=== PATIENT | female | born 1960 | race Caucasian/White ===

== ENCOUNTER 2019-07-30 11:49 | Inpatient (IN) | payer OTHER ==
[~2019-07-30] VITALS: Ht 160 cm; Wt 34.0 kg
--- NOTE | ~2019-07-30 | O ---
[facility] [place] [address] OPERATIVE REPORT Name: ALEJANDRA JETT Room #: [facility] IN M.R.#: [id number] Admission: 07/30/19 Attend Phys: Fernando Meraz MD Discharge: Date of : 56 Report #: [id number] THIS REPORT FOR: cc: Shawanda Rowan MD,Shawanda Rendon,Shan Enriquez MD ~ CC: Fernando Rowan DATE OF SERVICE: 08/01/2019 PREOPERATIVE DIAGNOSIS: Right hip femoral neck fracture. POSTOPERATIVE DIAGNOSIS: Right hip femoral neck fracture. PROCEDURE: Right hip hemiarthroplasty. SURGEON: Shan Rendon MD PREVENTATIVE MAINTENANCE TECHNICIAN: Lisandra Fierro. ANESTHESIA: General. ESTIMATED BLOOD LOSS: Minimal. DRAINS: No drains. TOURNIQUET TIME: Zero. ESTIMATED BLOOD LOSS: 200 mL. COMPLICATIONS: There were no complications. DESCRIPTION OF PROCEDURE: The patient was brought to the operating room where she was placed under general anesthesia. Once under adequate general anesthesia, she was placed into a lateral decubitus position on the operative table. The patient's right hip was then prepped and draped in sterile manner. A 14 cm incision was made overlying the tip of the greater trochanter. This was dissected down through soft tissue to the tensor fascia, which was incised in line with the incision exposing the posterior aspect of the hip. A posterior approach to the hip was then made, elevating the piriformis along with the joint capsule. Any hematoma was evacuated from the joint and a Casanova elevator was used to remove the femoral head. This was sized as 41 mm head. The femoral neck was cut to length with an oscillating saw and subsequently the head was trialled and 41 did appear to be the appropriate size of femoral head. Therefore, the [facility] [address] [place] [address] OPERATIVE REPORT Name: ALEJANDRA JETT Room #: 435-P [facility] IN ..#: [id number] Admission: 07/30/19 Attend Phys: Fernando Meraz MD Discharge: Date of : 56 Report #: [id number] femoral canal was then prepared. It was reamed and broached to a size 7 femoral stem. Subsequent to this, the femoral canal was prepared and cement stopper was placed. The cement was then mixed on the back table and subsequently the size 7 stem was placed along with the cement. This was fixed into place allowing the cement to set and subsequently the +5 bipolar neck and 41 head was then placed. This was then subsequently reduced. Excellent reduction with excellent stability was achieved in this manner. The wound was irrigated copiously and closed with #2 FiberWire in the capsular layer and #5 FiberWire to repair the piriformis back to its place in its fossa. The wound was irrigated once again copiously and closed with #1 Vicryl in the tensor fascia, 2-0 Vicryl in subcutaneous tissues and annalisa were used for the skin. Wounds were dressed with Xeroform, 4 x 4s, and sterile soft compressive dressing was placed. There were no tourniquets. There were no complications. The patient went to the recovery room without incident. By: [id number] Shan Rendon MD /nt
[~2019-07-30 11:49] MED LIST: CELEBREX 200 M200 M1 PO; DESYREL50 MG PO; FOSAMAX 70 MG T70 M1; LISINOPRIL20 MG; MIRAPEX0.25 MG; NABUMETONE 750750 M1 PO; NOHOMEMEDICATIONS; NORCO 5-325 TA1 EACH PO; PREDNISONE 10 M10 M1 PO; PROTONIX40 MG PO; QUETIAPINE FUM300 MG; SULFASALAZINE500 M4 PO
[2019-07-30 11:55] VITALS: BP 160/93
[2019-07-30 12:41] LABS: URINE BLOOD 2+ (Negative); URINE CLARITY CLEAR; URINE COLOR YELLOW; URINE GLUCOSE-RANDOM* NEGATIVE (Negative); URINE KETONES 1+ (Negative); URINE NITRITE-REFLEX NEGATIVE (Negative); URINE PROTEIN (DIPSTICK) NEGATIVE (Negative)
[2019-07-30 12:46] LABS: URINE LEUKOCYTES-REFLEX 1+ (Negative)
[2019-07-30 12:47] LABS: ICTOTEST (BILI CONFIRMATORY) Negative (Negative); URINE BILIRUBIN NEGATIVE (Negative)
[2019-07-30 12:54] LABS: CASTS None Seen /LPF (None Seen); MUCUS 0-3 Light strn/LPF (None Seen); SQUAMOUS >10 Many /LPF (0-3)
[2019-07-30 12:55] LABS: CRYSTALS None Seen /LPF (None Seen); URINE RBC 0-2 Rare /HPF (0-2); URINE WBC-REFLEX 0-5 Rare /HPF (0-5)
[2019-07-30 13:03] LABS: ABSOLUTE NEUTROPHILS 6.4 thou/uL (1.4-8.2); BASOPHILS 1.4 % (0.0-2.0); EOSINOPHILS 0.1 % (0.0-3.0); HEMATOCRIT 41.6 % (37.0-47.0); HEMOGLOBIN 13.7 gm/dL (12.0-15.0); LYMPHOCYTES 8.9 % (24.0-44.0); MCH 33.1 pg (26.0-34.0); MCHC 32.9 g/dL (28.0-37.0); MCV 100.6 fL (80.0-100.0); MONOCYTES 6.2 % (1.0-8.0); PLATELET COUNT 277 thou/uL (150-400); POLYS 83.4 % (36.0-66.0); RBC 4.14 mil/uL (4.20-5.00); RDW 15.5 % (10.5-14.5); WBC 7.7 thou/uL (4.0-11.0)
[2019-07-30 13:22] LABS: ANION GAP 11 mmol/L (7-16); BUN 5 mg/dL (7-18); CALCIUM 8.9 mg/dL (8.5-10.1); CHLORIDE 96 mmol/L (98-107); CO2 23 mmol/L (21-32); CREATININE 0.5 mg/dL (0.6-1.0); GLUCOSE 120 mg/dL (74-106); POTASSIUM 3.7 mmol/L (3.5-5.1); SODIUM 130 mmol/L (136-145)
[2019-07-30 13:30] LABS: ALBUMIN 2.9 g/dL (3.4-5.0); SGOT 24 U/L (15-37); SGPT 18 U/L (30-65); TOTAL BILIRUBIN 0.9 mg/dL (<0.1-1.0); TOTAL PROTEIN 6.8 g/dL (6.4-8.2); TROPONIN-I <0.06 ng/mL (<0.06)
[2019-07-30] MEDS ORDERED: VITAMIN B-1100 M2 PO (13:51)
[2019-07-30] MEDS ORDERED: MOBIC7.5 MG PO (13:51)
[2019-07-30] MEDS ORDERED: FOLIC ACID1 MG PO (13:51)
[2019-07-30] MEDS ORDERED: TRAZODONE HCL50 MG PO (13:51)
[2019-07-30] MEDS ORDERED: MULTI COMPLETE1 EAC1 PO (13:52)
[2019-07-30] MEDS ORDERED: METHOCARBAMOL500 M2 PO (13:52)
[2019-07-30] MEDS ORDERED: TYLENOL325 MG PO (13:53)
[2019-07-30 14:19] VITALS: BP 166/88
[2019-07-30 14:34] LABS: MAGNESIUM 1.7 mg/dL (1.8-2.4)
[2019-07-30 15:44] VITALS: BP 154/88
[2019-07-30 17:47] VITALS: BP 130/59
[2019-07-30 19:03] VITALS: BP 165/83
--- NOTE | 2019-07-30 19:29 | NUR ---
VSS-AFEBRILE. LUNGS CLEAR-ROOM AIR. DAUGHTER STATES THAT PATIENT IS A DAILY DRINKER (6 BEERS), AND SHE IS WORRIED ABOUT WITHDRAWL. NO SIGNS OF WITHDRAWL AT THIS TIME. PAIN WELL CONTROLLED WITH IV AND PO PAIN MEDICATION. LOGAN DRAINING ADEQUATE AMOUNTS OF DARK YELLOW URINE TO DEPENDENT DRAINAGE BAG. CONSUMED 50% OF DINNER, WILL BE NPO AFTER MIDNIGHT FOR ANTICIPATED SURGERY. FALL PRECAUTIONS IN PLACE, ALL CONSENTS SIGNED, CALLS APPROPRIATELY FOR ANY NEEDED ASSISTANCE.
--- NOTE | 2019-07-31 03:07 | NUR ---
ASSUMED PT CARE AT 1900. PT SLEEPING NEARLY ALL NIGHT. DENIES PAIN WHEN ASKED. NPO AT MIDNIGHT, AWAITING VISIT FROM SURGEON TOMORROW. FLUIDS INFUSING PER ORDER. LOGAN PATENT WITH GOOD OUTPUT. SOME CONFUSION ABOUT TIME OF DAY/WHAT CERTAIN NOISES ARE. WILL CONTINUE TO MONITOR.
[2019-07-31 04:21] VITALS: BP 155/79
[2019-07-31 06:33] LABS: AMP/METHAMP Negative (Negative); BARBITURATES Negative (Negative); BENZODIAZEPINES Negative (Negative); COCAINE Negative (Negative); METHADONE Negative (Negative); OPIATES POSITIVE (Negative); PCP Negative (Negative)
[2019-07-31 07:27] VITALS: BP 142/74
--- NOTE | 2019-07-31 08:40 | EKG ---
[facility] [place] [address] ELECTROCARDIOGRAM REPORT Name: ALEJANDRA JETT Room #: [facility]- ADM IN M.R.#: [id number] Admission: 07/30/19 Attend Phys: Fernando Meraz MD Discharge: Date of : 56 Report #: [id number] THIS REPORT FOR: cc: Shawanda Rowan MD, Molly MD Lundgren,Koko Tineo MD [facility] ~ THIS REPORT FOR: //name// [facility] ED Test Date: 2019-07-30 Test Time: 13:12:24 Pat Name: ALEJANDRA JETT Department: Room: [facility] Gender: F Exchange Specialist: : [id number] Requested By: Rory Diaz Order Number: [id number] MD: Koko Sanchez Measurements Intervals [place] Rate: 73 P: 85 AR: 167 QRS: 83 QRSD: 94 T: 73 QT: 438 QTc: 483 Interpretive Statements Sinus rhythm Possible Anteroseptal infarct, age indeterminate Compared to ECG 02/18/2013 08:25:29 Septal Q waves are now present Electronically Signed On 07-31-2019 8:39:49 EMPLOYMENT TRAINING SPECIALIST by Koko Sanchez [email or web address] <ELECTRONICALLY SIGNED> By: Koko Sanchez MD, [facility] 07/31/19 0839 [id number] Koko Sanchez MD, [facility] /EPI
--- NOTE | 2019-07-31 10:08 | NUR ---
ASSESSMENT-PT LIVES AT HOME ALONE. SHE HAS A RAMP TO ENTER THEN A STAIRGLIDE TO BATHROOM BEDROOM LEVEL AND A STAIRGIDE TO BASEMENT LEVEL WHERE LAUNDRY IS LOCATED. PT USES A ROLLER WALKER IN THE HOME AND A WC OUSIDE OF THE HOME. PT SAYS SHE HAD HH SERVICES LAST YEAR BUT CANNOT REMEMBER THE NAME OF THE AGENCY. PT DOES NOT DRIVE, HER DTR OTONIEL ARELLANO TRANPORTS HER OR SHE USES TRANSPORTATION THRU HER INS. DTR ADAN DOES THE LAUNDRY AND HELPS HER WITH THE CLEANING. 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 DTR IAN DOES NOT HAVE A CAR AND WORKS LONG HOURS. PT HAS ANOTHER DTR RICHY WHO LIVES IN [place] BUT DOES NOT HELP OUT SINCE SHE LIVES AWAY FROM HER. PT HAS A SHOWER CHAIR SHE SITS ON BUT NO BARS GETTING IN AND OUT OF THE SHOWER. DISCUSSED POSSIBLE NEED FOR REHAB VS HH SERVICES. PT PREFERS HH SERVICES IF POSSIBLE. FOLLOWING TO ASSIST WITH DC PLANNING.
--- NOTE | 2019-07-31 15:00 | NUR ---
Assumed care of pt at 0700. Pt alert but with periods of confusion. Pain controlled with prn pain meds. Pt will have surgery tomorrow. Family aware. Newman catheter in place. Will contact doctor and inquire about dicontinuing catheter. IVF infusing. Pt will be NPO after midnight. Fall precautions in place. Will continue to monitor.
[2019-07-31 15:25] VITALS: BP 134/70
[2019-07-31 19:17] VITALS: BP 125/68
[2019-08-01] VITALS (11 sets, daily range): BP systolic 82–150; BP diastolic 60–83
--- NOTE | 2019-08-01 03:39 | NUR ---
ASSESSMENT COMPLETED. PT IS ALERT AND ORIENTYED. VERY FRAIL LOOKING. IV FLUIDS INFUSING.NPO AFTER MIDNOC. PLAN FOR R HIP ROBERT IN THE MORNING. PREOP ABT GIVEN. AFEBRILE. SCDS IN PLACE.IN PAIN DURING REPOSITIONING BUT OTHERWISE DOING OKAY AT REST.ON IV FLUIDS. DOREEN ALVARES.
[2019-08-01 05:39] LABS: CALCIUM 7.2 mg/dL (8.5-10.1); CREATININE 0.6 mg/dL (0.6-1.0)
[2019-08-01 06:06] LABS: POTASSIUM 2.6 mmol/L (3.5-5.1)
[2019-08-01 06:13] LABS: HEMATOCRIT 34.4 % (37.0-47.0); MCH 33.9 pg (26.0-34.0); MCHC 32.9 g/dL (28.0-37.0); RBC 3.34 mil/uL (4.20-5.00); RDW 15.8 % (10.5-14.5); WBC 5.3 thou/uL (4.0-11.0)
[2019-08-01 06:15] LABS: HEMOGLOBIN 11.3 gm/dL (12.0-15.0)
--- NOTE | 2019-08-01 11:57 | NUR ---
Assumed care of pt at 0700. Newman catheter removed overnight. Pt has frequency. Potassium critically low this am. Replaced. Surgery scheduled for 1230. Family notified. Prn pain meds administered. IVF infusing. Call light within reach. Fall precautions in place.
--- NOTE | 2019-08-01 14:58 | NUR ---
I have reviewed and concur with student documentation.
--- NOTE | 2019-08-01 16:32 | NUR ---
PT TO HAVE SURGERY THIS DAY. FACESHEET PROVIDED TO [facility] TO SEE PT REGARDING SECONDARY MEDICAID APPLICATION. CM TO FOLLOW INDICATED WITH DC PLANNING.
[2019-08-01 17:48] LABS: BE(vivo) -2.6 mmol/L (-2 to +3); HCO3 22.5 mmol/L (22.0-26.0); PCO2 39.9 mmHg (35.0-45.0); PO2 161.8 mmHg (80.0-100.0); pH 7.369 (7.360-7.450)
[2019-08-01 18:08] LABS: HEMOGLOBIN 10.7 gm/dL (12.0-15.0); MCH 34.4 pg (26.0-34.0); MCHC 33.4 g/dL (28.0-37.0); MCV 102.9 fL (80.0-100.0); RBC 3.11 mil/uL (4.20-5.00); WBC 5.2 thou/uL (4.0-11.0)
--- NOTE | 2019-08-02 03:37 | NUR ---
PT WAS STILL DROWSY BUT EASILY AROUSABLE AT THE START OF SHIFT.VSS AT THE TIME.PT WAS PUT ON CONT PULASE OX FOR MONITORING.PT ON 2L/NC FOR COMFORT.DRSG ON HER R HIP C/D/I WITH ABDUCTOR PILLOW AND SCD IN PLACE.PT CONT ON IVF ORDERED.PT RESTING ON HER BED AT THIS TIME.FALL PRECAUTIONS IN PLACE,CALL LIGHT WITHIN REACH.
[2019-08-02 04:14] VITALS: BP 98/64
[2019-08-02 04:48] LABS: HEMATOCRIT 29.6 % (37.0-47.0); HEMOGLOBIN 9.7 gm/dL (12.0-15.0); MCH 34.2 pg (26.0-34.0); MCHC 32.9 g/dL (28.0-37.0); MCV 103.9 fL (80.0-100.0); RBC 2.84 mil/uL (4.20-5.00); RDW 15.6 % (10.5-14.5); WBC 6.2 thou/uL (4.0-11.0)
[2019-08-02 08:14] VITALS: BP 92/64
[2019-08-02 09:32] LABS: CALCIUM 7.4 mg/dL (8.5-10.1); CREATININE 0.5 mg/dL (0.6-1.0); PHOSPHORUS 3.6 mg/dL (2.5-4.9)
--- NOTE | 2019-08-02 10:56 | NUR ---
PT UP IN BEDSIDE CHAIR DRESSING INTACT TO RIGHT HIP. PT GIVEN PRN PAIN MED. PT ALERT XS 4 PLEASANT AND COOPERATIVE WITH CARE. PT WORKING WITH THERAPY.
--- NOTE | 2019-08-02 11:39 | NUR ---
[place] [facility] [place] JAVIER IN [place] SHE RECEIVED REFERRAL AND CAN ACCEPT WILL SUBMIT FOR AUTH. DP TO FOLLOW.
--- NOTE | 2019-08-02 13:47 | NUR ---
CARE TEAM INDICATED PT WOULD NEED POST ACUTE CARE STAY UPON DC. CM SPOKE WITH PT'S DTR/OTONIEL DEL CASTILLO AND SHE INDICATED THAT PT HAD BEEN TO [facility] [place] IN PAST AND WOULD LIKE REFERRAL SENT THERE FOR REVIEW FOR POSSIBLE ADMISSION. PT IS ALSO AWARE AND AGREEABLE. [facility] [place] INDICATED THEY CAN ACCEPT AND HAVE SUBMITTED FOR INSURANCE AUTH. CM TO FOLLOW INDICATED WITH DC PLANNING.
[2019-08-02 15:39] VITALS: BP 97/59
[2019-08-02 19:15] VITALS: BP 116/73
[2019-08-03 04:30] VITALS: BP 123/79
--- NOTE | 2019-08-03 04:34 | NUR ---
ALERT AND ORIENTED. PT USES BED MOTT BUT SOMETIMES IS INCONTINENT. R HIP POST OP DRSG INTACT. NO EDEMA. GOOD FLUID INTAKE. PT BEEN CALM AND COOPERATIVE THE WHOLE SHIFT.
[2019-08-03 06:03] LABS: HEMATOCRIT 25.3 % (37.0-47.0); HEMOGLOBIN 8.5 gm/dL (12.0-15.0); MCH 34.8 pg (26.0-34.0); MCHC 33.4 g/dL (28.0-37.0); MCV 104.2 fL (80.0-100.0); RBC 2.43 mil/uL (4.20-5.00); RDW 15.7 % (10.5-14.5); WBC 4.5 thou/uL (4.0-11.0)
[2019-08-03 07:22] VITALS: BP 129/70
[2019-08-03 15:55] VITALS: BP 137/78
[2019-08-03 19:10] VITALS: BP 106/76
--- NOTE | 2019-08-03 19:59 | NUR ---
Assumed care of pt at 0700. Dressing on right hip changed. Pt able to stand up and go to bedside commode, SBA with gait-belt and walker. Pain controlled with prn pain meds. Call light within reach. Fall precautions in place.
[2019-08-04 03:30] VITALS: BP 105/71
--- NOTE | 2019-08-04 04:03 | NUR ---
DRSG TO R HIP IS C/D/I. PT GETS UP SLOWWLY TO THE BSC. PT ALSO USES BED MOTT AND SOMETIMES GETS INCONTIENT DUE TO URGENCY.PT HAD A MOMENT OF CONFUSION RIGHT ABOUT BEDTIME,SHE TALKED TO THE DTR ON THE PHONE AND SHE BECAME BETTER. PT GIVEN PO HYDROCODONE AT HS AND PT WAS ABLE TO QUIETLY SLEEP.PLAN TO D/C TO SNF TODAY.
[2019-08-04 06:12] LABS: HEMOGLOBIN 8.7 gm/dL (12.0-15.0); MCH 34.8 pg (26.0-34.0); MCHC 33.6 g/dL (28.0-37.0); MCV 103.6 fL (80.0-100.0); RBC 2.51 mil/uL (4.20-5.00); RDW 15.7 % (10.5-14.5); WBC 4.7 thou/uL (4.0-11.0)
[2019-08-04 06:27] LABS: CALCIUM 8.4 mg/dL (8.5-10.1); CREATININE 0.6 mg/dL (0.6-1.0); MAGNESIUM 1.3 mg/dL (1.8-2.4); POTASSIUM 3.2 mmol/L (3.5-5.1)
[2019-08-04 07:28] VITALS: BP 112/76
--- NOTE | 2019-08-04 11:09 | NUR ---
PT RESTING IN BED NO CONFUSION AT THIS TIME PATIENT STATES HAD CONFUSION YERSTERDAY. PT TOOK AM MEDS. GAVE PRN PAIN MED.
[2019-08-04] MEDS ORDERED: VITAMIN D325 MCG PO (13:32)
[2019-08-04] MEDS ORDERED: MAG-OXIDE400 MG PO (13:32)
[2019-08-04] MEDS ORDERED: NICOTINE1 EAC2 TRANSDERM (13:32)
[2019-08-04] MEDS ORDERED: KLOR-CON 1010 MEQ PO (13:32)
[2019-08-04] MEDS ORDERED: XARELTO10 MG PO (13:32)
[2019-08-04] MEDS ORDERED: COLACE100 MG PO (13:32)
[2019-08-04] MEDS ORDERED: HYDROCODON-ACE1 EAC7 PO (13:32)
[2019-08-04] MEDS ORDERED: B-12500 MCG PO (13:32)
[2019-08-04] MEDS ORDERED: SLOW FE142 MG PO (13:32)
--- NOTE | 2019-08-04 14:49 | NUR ---
CARE TEAM INDICATED THAT [place] MEDICALLY ST[place] [facility] [place]ART COPY MADE. ORDERS TO BE FAXED. REPORT TO BE CALLED TO . [facility]ELCHA[facility] TRANSPORT SET UP FOR 1500. PT AND DTR/DPOA ARE AWARE AND AGREEABLE. NO OTHER CM INTERVENTION INDICATED. CASE CLOSED.
--- NOTE | 2019-08-04 16:36 | NUR ---
[facility] HERE TO TRANSPORT PATIENT TO [facility]. IV ACSZACK DC'D. ALL BELONGINGS PACKED AND SENT WITH PATIENT. DISCHARGE PAPERS SENT WITH PATIENT.
== END 2019-08-04 16:50 | DRG 469 ==
LOC: ER 11:49 → 4S 14:15 → EROBS 14:15 → 4S 15:57
PROVIDERS: Emergency Medicine; Internal Medicine; Orthopaedic Surgery Foot and Ankle Surgery; Physician Assistant; ADMIT Hospitalist
PROC: 0SRR0J9 Replacement of Right Hip Joint, Femoral Surface with Synthetic Substitute, Cemented, Open Approach (ICD-10-PCS; principal; 2019-08-01)
DX: S72.001A Fracture of unspecified part of neck of right femur, initial encounter for closed fracture (principal); E43 Unspecified severe protein-calorie malnutrition; Z68.1 Body mass index [BMI] 19.9 or less, adult; W18.39XA Other fall on same level, initial encounter; M19.90 Unspecified osteoarthritis, unspecified site; M81.0 Age-related osteoporosis without current pathological fracture; F32.9 Major depressive disorder, single episode, unspecified; I10 Essential (primary) hypertension; F17.210 Nicotine dependence, cigarettes, uncomplicated; D53.9 Nutritional anemia, unspecified; E83.42 Hypomagnesemia; G47.00 Insomnia, unspecified; E87.6 Hypokalemia; Z79.899 Other long term (current) drug therapy; Y93.89 Activity, other specified; Y92.89 Other specified places as the place of occurrence of the external cause; Y99.8 Other external cause status; Z90.89 Acquired absence of other organs; Z86.711 Personal history of pulmonary embolism; Z79.01 Long term (current) use of anticoagulants
CPT/HCPCS: 10195; 50010; 50101; 50382; 50414; 50939; 51057; 51130; 51225; 51226; 51412; 53000; 56525; 56530; 56531; 57103; 57117; 62110; 62900; 70005